=== PATIENT | female | born 1965 | race Caucasian/White ===

== ENCOUNTER 2019-12-09 05:40 | Emergency (ER) | payer OTHER ==
--- NOTE | 2019-12-09 05:59 | ERPHSYRPT ---
<MIGUEL ZARCO - Last Filed: 12/09/19 06:37> - History of Present Illness Time Seen by Provider: 12/09/19 05:55 Historian: patient, EMS Exam Limitations: no limitations Physician History: This is a 54-year-old white female who is a daily smoker of cigarettes and has a history of CHF, hypertension and elevated cholesterol and presents to the emergency department with bilateral upper extremity pain with radiation to her chest. Onset was sudden at approximately 430 this morning. The pain is described as a pressure and ache. She had associated shortness of breath. The symptoms lasted approximately 15 minutes. Patient's veterans contact representative is Dr. Amador. Patient has a cardiac history but no history of myocardial infarction. Patient's is here for evaluation of chest pain. Her symptoms of chest pain and shortness of breath have resolved. Patient was brought in by EMS. Patient took a full aspirin prior to arrival and EMS gave her 3 more 81 mg aspirin. Patient is supposed to be taking lisinopril, Norvasc and Coreg. However she has not had her Norvasc and Coreg for at least a month. She did not take her lisinopril this morning. Timing/Duration: today, resolved prior to arrival Activities at Onset: other (Patient woke up and was beginning to do her hair when her symptoms began) Quality: aching, pressure Location: shoulder (Bilateral), other (Chest) Chest Pain Radiation: arm (Bilateral) Severity of Pain-Max: moderate Severity of Pain-Current: none Associated Symptoms: shortness of breath Nitro Today/Relief: no nitro taken today Aspirin Treatment Today: 81 mg x 3, 325 mg x 1, provided at home, provided by EMS Allergies/Adverse Reactions: Tetracyclines Allergy (Intermediate, Verified 12/09/19 06:22) Rash Home Medications: Alprazolam 0.5 mg [xanAX 0.5 MG] 0.5 mg PO HS 12/09/19 [History] Fluoxetine HCl 20 mg PO DAILY 12/09/19 [History] Lisinopril/Hydrochlorothiazide [Lisinopril-Hctz 20-12.5 mg Tab] 1 mg PO BID 12/09/19 [History] Naproxen 500 mg PO Q6H PRN PRN 12/09/19 [History] buPROPion HCl [Bupropion HCl Sr] 150 mg PO DAILY 12/09/19 [History] Travel Risk - International Travel Have you traveled outside of the country in past 3 weeks: No - Coronavirus Screening Are you exhibiting any of the following symptoms?: No Close contact with a COVID-19 positive Pt in past 14-21 Days: No - Review of Systems Constitutional: No Symptoms Eyes: No Symptoms Ears, Nose, & Throat: No Symptoms Respiratory: Dyspnea Cardiac: Chest Pain Abdominal/Gastrointestinal: No Symptoms Genitourinary Symptoms: No Symptoms Musculoskeletal: No Symptoms Skin: No Symptoms Neurological: No Symptoms Psychological: No Symptoms Endocrine: No Symptoms Hematologic/Lymphatic: No Symptoms Immunological/Allergic: No Symptoms All Other Systems: Reviewed and Negative - Past Medical History Pertinent Past Medical History: Yes Neurological History: No Pertinent History ENT History: No Pertinent History Cardiac History: Congestive Heart Failure, High Cholesterol, Hypertension Respiratory History: No Pertinent History Endocrine Medical History: No Pertinent History Musculoskeletal History: No Pertinent History GI Medical History: No Pertinent History History: No Pertinent History Psycho-Social History: Anxiety, Depression Female Reproductive Disorders: No Pertinent History - Past Surgical History Past Surgical History: No Neuro Surgical History: No Pertinent History Cardiac: No Pertinent History Respiratory: No Pertinent History Gastrointestinal: No Pertinent History Genitourinary: No Pertinent History Musculoskeletal: No Pertinent History Female Surgical History: No Pertinent History - Social History Smoking Status: Current every day smoker Drug Use: none - Physical Exam General Appearance: no apparent distress, alert, anxiety Eye Exam: PERRL/EOMI, eyes nml inspection Ears, Nose, Throat Exam: normal ENT inspection, moist mucous membranes Neck Exam: normal inspection, non-tender, supple, full range of motion Respiratory Exam: normal breath sounds, chest tenderness, lungs clear, airway intact, No respiratory distress Cardiovascular Exam: regular rate/rhythm, normal heart sounds, normal peripheral pulses Gastrointestinal/Abdomen Exam: soft, normal bowel sounds, No tenderness Pelvic Exam: not done Rectal Exam: not done Back Exam: normal inspection, normal range of motion, No CVA tenderness, No vertebral tenderness Extremity Exam: normal inspection, normal range of motion, pelvis stable Neurologic Exam: alert, oriented x 3, cooperative, acidizer water well II-XII nml as tested, normal mood/affect, nml cerebellar function, nml station & gait, sensation nml Skin Exam: normal color, warm, dry Lymphatic Exam: No adenopathy SpO2 Interpretation: normal SpO2: 97 O2 Delivery: Room Air - Course Nursing assessment & vital signs reviewed: Yes EKG Interpreted by Me: RATE (68), Sinus Rhythm, NORMAL AXIS, NORMAL INTERVALS, NORMAL QRS, Other (There are no ischemic changes on today's EKG. There is no comparison EKG.) - Progress Progress: improved Air Movement: good Progress Note: 12/09/19 06:35 Chest x-ray reveals no evidence of acute pulmonary process. I reviewed the patient history, condition, EKG results with Dr. Shannan Vinson. I also reviewed with him the pending tests. He accepts the patient in transfer to him at shift change. He will make the final determination on the patient disposition - Departure Clinical Impression: Non-STEMI (non-ST elevated myocardial infarction) Condition: Critical Referrals: SALENA TRAMMELL [Primary Care Provider] - <SAHNNAN VINSON - Last Filed: 12/09/19 07:37> - Nursing Vital Signs Nursing Vital Signs: Initial Vital Signs Temperature 98.2 F 12/09/19 05:45 Pulse Rate 65 12/09/19 05:45 Respiratory Rate 18 12/09/19 05:45 Blood Pressure 185/71 12/09/19 05:45 O2 Sat by Pulse Oximetry 97 12/09/19 05:45 Pain Scale Pain Intensity 0 Ordered Tests: Active Orders 24 hr Category Date Time Status Services Engineer STAT Care 12/09/19 06:02 Active EKG-ER Only STAT Care 12/09/19 06:01 Active IV Insertion STAT Care 12/09/19 06:01 Active Pulse Oximetry (ED) STAT Care 12/09/19 06:01 Active CHEST 1 VIEW (PORTABLE) Stat Exams 12/09/19 06:02 Taken CBC W DIFF Stat Lab 12/09/19 06:15 Completed CMP Stat Lab 12/09/19 06:15 Completed D-DIMER QUANTITATIVE Stat Lab 12/09/19 06:15 Completed NT PRO BNP Stat Lab 12/09/19 06:15 Completed PROTIME WITH INR Stat Lab 12/09/19 06:15 Completed TROPONIN Q3H Lab 12/09/19 06:15 Completed TROPONIN Q3H Lab 12/09/19 09:15 Ordered TROPONIN Q3H Lab 12/09/19 12:15 Ordered TROPONIN Q3H Lab 12/09/19 15:15 Ordered TROPONIN Q3H Lab 12/09/19 18:15 Ordered Medication Summary Discontinued Medications Generic Name Dose Route Start Last Admin Trade Name Castroq PRN Reason Stop Dose Admin Metoprolol Tartrate 5 mg 12/09/19 06:01 12/09/19 06:38 Lopressor 5 Mg/5 Ml Injection IV 12/09/19 06:02 5 mg STAT ONE Administration Metoprolol Tartrate Confirm 12/09/19 06:35 Lopressor 5 Mg/5 Ml Injection Administered 12/09/19 06:36 Dose 5 mg IV .STK-MED ONE Lab/Rad Data: Laboratory Result Diagrams 12/09/19 06:15 12/09/19 06:15 Laboratory Results 12/09/19 12/09/19 12/09/19 Range/Units 06:15 06:15 06:15 WBC (4.0-10.5) K/mm3 RBC (4.1-5.4) M/mm3 Hgb (12.0-16.0) gm/dl Hct (35-47) % MCV (78-100) fl MCH (26-32) pg MCHC (32-36) g/dl RDW (11.5-14.0) % Plt Count (150-450) K/mm3 MPV (7.5-11.0) fl Gran % (36.0-66.0) % Eos # (Auto) (0-0.5) Absolute Lymphs (auto) (1.0-4.6) Absolute Monos (auto) (0.0-1.3) Lymphocytes % (24.0-44.0) % Monocytes % (0.0-12.0) % Eosinophils % (0.00-5.0) % Basophils % (0.0-0.4) % Absolute Granulocytes (1.4-6.9) Basophils # (0-0.4) PT 11.5 (9.95-12.35) SECONDS INR 1.02 (0.8-3.0) D-Dimer 261 (215-500) ng/mL Sodium 136 L (137-145) mmol/L Potassium 4.1 (3.5-5.1) mmol/L Chloride 105 (98-107) mmol/L Carbon Dioxide 23 (22-30) mmol/L Anion Gap 12.7 (5-15) MEQ/L BUN 17 (7-17) mg/dL Creatinine 0.64 (0.52-1.04) mg/dL Estimated GFR > 60.0 ML/MIN Glucose 110 H (74-106) mg/dL Calcium 9.4 (8.4-10.2) mg/dL Total Bilirubin 0.40 (0.2-1.3) mg/dL AST 24 (14-36) U/L ALT 20 (0-35) U/L Alkaline Phosphatase 84 (38-126) U/L Troponin I 0.053 H* (0.000-0.034) ng/mL NT-Pro-B Natriuret Pep 35.7 (0-900) pg/mL Serum Total Protein 7.4 (6.3-8.2) g/dL Albumin 4.0 (3.5-5.0) g/dL 12/09/19 Range/Units 06:15 WBC 11.4 H (4.0-10.5) K/mm3 RBC 5.36 (4.1-5.4) M/mm3 Hgb 15.0 (12.0-16.0) gm/dl Hct 46.2 (35-47) % MCV 86.2 (78-100) fl MCH 28.0 (26-32) pg MCHC 32.5 (32-36) g/dl RDW 15.0 H (11.5-14.0) % Plt Count 213 (150-450) K/mm3 MPV 11.9 H (7.5-11.0) fl Gran % 76.0 H (36.0-66.0) % Eos # (Auto) 0.42 (0-0.5) Absolute Lymphs (auto) 1.67 (1.0-4.6) Absolute Monos (auto) 0.59 (0.0-1.3) Lymphocytes % 14.7 L (24.0-44.0) % Monocytes % 5.2 (0.0-12.0) % Eosinophils % 3.7 (0.00-5.0) % Basophils % 0.4 (0.0-0.4) % Absolute Granulocytes 8.63 H (1.4-6.9) Basophils # 0.05 (0-0.4) PT (9.95-12.35) SECONDS INR (0.8-3.0) D-Dimer (215-500) ng/mL Sodium (137-145) mmol/L Potassium (3.5-5.1) mmol/L Chloride (98-107) mmol/L Carbon Dioxide (22-30) mmol/L Anion Gap (5-15) MEQ/L BUN (7-17) mg/dL Creatinine (0.52-1.04) mg/dL Estimated GFR ML/MIN Glucose (74-106) mg/dL Calcium (8.4-10.2) mg/dL Total Bilirubin (0.2-1.3) mg/dL AST (14-36) U/L ALT (0-35) U/L Alkaline Phosphatase (38-126) U/L Troponin I (0.000-0.034) ng/mL NT-Pro-B Natriuret Pep (0-900) pg/mL Serum Total Protein (6.3-8.2) g/dL Albumin (3.5-5.0) g/dL - Departure Departure Disposition: Transfer (Patient was transferred to [facility]. As an non-STEMI. We did discuss the case with Dr. Villafuerte and with Dr. Warner the hospitalist. We did fax a copy of the EKG to Dr. Villafuerte because of the question of early repolarization.) Critical Care Time: Yes Critical Care Time(excluding separately billable procedures): Critical 30-74 mins
[2019-12-09] MEDS ORDERED: LOPRESSOR 5 MG/5 ML INJECTION IV ONE ×2 (06:01→06:35)
[2019-12-09 06:18] LABS: Absolute Neutrophil Ct (ANC) 8.63 (1.4-6.9); BASOPHIL % 0.4 % (0.0-0.4); Basophil (Absolute #) 0.05 (0-0.4); Eosinophil % 3.7 % (0.00-5.0); Eosinophil (Absolute #) 0.42 (0-0.5); Hematocrit 46.2 % (35-47); Lymphocyte (Absolute #) 1.67 (1.0-4.6); Lymphocytes % 14.7 % (24.0-44.0); Mean Cell Volume 86.2 fl (78-100); Mean Corpuscular Hgb Concent. 32.5 g/dl (32-36); Mean Platelet Volume 11.9 fl (7.5-11.0); Monocyte (Absolute #) 0.59 (0.0-1.3); Monocytes % 5.2 % (0.0-12.0); Platelet Count 213 K/mm3 (150-450); Red Blood Count 5.36 M/mm3 (4.1-5.4); White Blood Count 11.4 K/mm3 (4.0-10.5)
[2019-12-09 06:36] LABS: INR 1.02 (0.8-3.0); PROTIME 11.5 SECONDS (9.95-12.35)
[2019-12-09 06:42] LABS: ALKALINE PHOSPHATASE 84 U/L (38-126); ANION GAP 12.7 MEQ/L (5-15); BLOOD UREA NITROGEN 17 mg/dL (7-17); CHLORIDE 105 mmol/L (98-107); Calcium 9.4 mg/dL (8.4-10.2); Carbon Dioxide 23 mmol/L (22-30); Creatinine 1 0.64 mg/dL (0.52-1.04); Glucose 110 mg/dL (74-106); NT PRO BNP 35.7 pg/mL (0-900); Potassium 4.1 mmol/L (3.5-5.1); SGOT/AST 24 U/L (14-36); SGPT/ALT 20 U/L (0-35); SODIUM 136 mmol/L (137-145); Total Protein 7.4 g/dL (6.3-8.2)
--- NOTE | 2019-12-09 08:59 | XRAY ---
Indication: Chest pain and short of breath. Comparison: None Portable chest demonstrates normal heart, lungs, and bony thorax.
[2019-12-09 09:15] VITALS: BP 163/67; PULSE 53; O2SAT 96
== END 2019-12-09 09:53 | disposition short-term general hospital (02) ==
LOC: ED 05:40
DX: I21.4 Non-ST elevation (NSTEMI) myocardial infarction (principal); I10 Essential (primary) hypertension; E78.00 Pure hypercholesterolemia, unspecified; Z72.0 Tobacco use
CPT/HCPCS: 36000; 36415; 71045; 80053; 83880; 84484; 85025; 85379; 85610; 93005; 93041; 94760; 96374; 99285; 99291